=== PATIENT | male | born 1985 | race Caucasian/White ===

== ENCOUNTER 2018-10-03 13:09 | Emergency (ER) | payer BC ==
--- NOTE | 2018-10-03 13:41 | EDM.PDOC ---
ED HPI GENERAL MEDICAL PROBLEM - General Chief Complaint: General Stated Complaint: ORAL PAIN Time Seen by Provider: 10/03/18 13:35 - History of Present Illness INITIAL COMMENTS - FREE TEXT/NARRATIVE: HISTORY AND PHYSICAL: History of present illness: Patient 33-year-old male presents with a concern of dental abscess he has a scheduled appointment on Saturday he is here with concern of antibiotics and pain medication. No fever chills nausea vomiting or other complaints Review of systems: As per history of present illness and below otherwise all systems reviewed and negative. Past medical history: As per history of present illness and as reviewed below otherwise noncontributory. Surgical history: As per history of present illness and as reviewed below otherwise noncontributory. Social history: No reported history of drug or alcohol abuse. Family history: As per history of present illness and as reviewed below otherwise noncontributory. Physical exam: HEENT: Atraumatic, normocephalic, pupils reactive, negative for conjunctival pallor or scleral icterus, mucous membranes moist, throat clear, neck supple, nontender, trachea midline. Generally poor dentition patient has dental decay diffuse and left lower gingival edema. Lungs: Clear to auscultation, breath sounds equal bilaterally, chest nontender. Heart: S1S2, regular, negative for clicks, rubs, or JVD. Abdomen: Soft, nondistended, nontender. Negative for masses or hepatosplenomegaly. Negative for costovertebral tenderness. Pelvis: Stable nontender. Genitourinary: Deferred. Rectal: Deferred. Extremities: Atraumatic, negative for cords or calf pain. Neurovascular unremarkable. Neuro: Awake, alert, oriented. Cranial nerves II through XII unremarkable. Cerebellum unremarkable. Motor and sensory unremarkable throughout. Exam nonfocal. Diagnostics: None Therapeutics: None Impression: #1 dentalgia #2 dental abscess Definitive disposition and diagnosis as appropriate pending reevaluation and review of above. - Related Data Allergies Allergy/AdvReac Type Severity Reaction Status Date / Time Unable to Assess Allergy Unverified 03/12/14 07:57 ED ROS GENERAL - Review of Systems Review Of Systems: ROS reveals no pertinent complaints other than HPI. ED EXAM, GENERAL - Physical Exam Exam: See Below (See dictation) Departure - Departure Time of Disposition: 13:41 Disposition: Home, Self-Care 01 Condition: Good Clinical Impression: Dentalgia, Dental abscess - Discharge Information Referrals: PCP,None [Primary Care Provider] - Additional Instructions: The following information is given to patients seen in the emergency department who are being discharged to home. This information is to outline your options for follow-up care. We provide all patients seen in our emergency department with a follow-up referral. The need for follow-up, as well as the timing and circumstances, are variable depending upon the specifics of your emergency department visit. If you don't have a primary care physician on staff, we will provide you with a referral. We always advise you to contact your personal physician following an emergency department visit to inform them of the circumstance of the visit and for follow-up with them and/or the need for any referrals to a consulting specialist. The emergency department will also refer you to a specialist when appropriate. This referral assures that you have the opportunity for followup care with a specialist. All of these measure are taken in an effort to provide you with optimal care, which includes your followup. Under all circumstances we always encourage you to contact your private physician who remains a resource for coordinating your care. When calling for followup care, please make the office aware that this follow-up is from your recent emergency room visit. If for any reason you are refused follow-up, please contact the [facility] emergency department at and asked to speak to the emergency department charge nurse. Augmentin Ultram as prescribed keep dental appointment as scheduled and return as needed as discussed
== END 2018-10-03 13:56 | disposition home or self-care (01) ==
LOC: MW.ED 13:09
DX: K04.7 Periapical abscess without sinus (principal)
CPT/HCPCS: 99282; 99283

== ENCOUNTER 2019-10-23 14:52 | Emergency (ER) | payer BC, OTHER ==
--- NOTE | 2019-10-23 15:11 | EDM.PDOC ---
ED HPI GENERAL MEDICAL PROBLEM - General Chief Complaint: Back Pain or Injury Stated Complaint: FEVER AND BODY ACHES Time Seen by Provider: 10/23/19 15:10 Source of Information: Reports: Patient History Limitations: Reports: No Limitations - History of Present Illness INITIAL COMMENTS - FREE TEXT/NARRATIVE: HISTORY AND PHYSICAL: History of present illness: Patient is a 34-year-old male presents to the ED with complaint of fever and back pain and muscle aches. Patient states he woke up this morning with a subjective fever and chills. He states he is having some lower abdominal pain and thought it might be due to him doing some physical labor recently. He reports having swollen and tender lymph nodes in his neck and sore throat. He states he did have some nausea this morning that passed. He denies vomiting, diarrhea, abdominal pain, dysuria, hematuria, headache, cough, chest pain, shortness of breath, nasal congestion, sinus pressure, loss of taste or smell. Denies any recent travel or known sick contacts. Denies significant past medical history. Review of systems: As per history of present illness and below otherwise all systems reviewed and negative. Past medical history: As per history of present illness and as reviewed below otherwise noncontributory. Surgical history: As per history of present illness and as reviewed below otherwise noncontributory. Social history: No reported history of drug or alcohol abuse. Family history: As per history of present illness and as reviewed below otherwise noncontributory. Physical exam: General: Patient sitting comfortably in no acute distress and nontoxic appearing HEENT: Tonsils are 1+ and erythematous without exudate. Swollen and tender anterior cervical lymphadenopathy. TMs clear bilaterally. Atraumatic, normocephalic, pupils reactive, negative for conjunctival pallor or scleral icterus, mucous membranes moist, throat clear, neck supple, nontender, trachea midline. No meningeal signs. Lungs: Clear to auscultation, breath sounds equal bilaterally, chest nontender. Heart: S1S2, regular, negative for clicks, rubs, or overt murmur. Abdomen: Soft, nondistended, nontender. Negative for masses or hepatosplenomegaly. Negative for costovertebral tenderness. No rigidity, rebound , guarding. Pelvis: Stable nontender. Genitourinary: Deferred. Rectal: Deferred. Spine: No vertebral, paraspinal, or back tenderness to palpation. Extremities: Atraumatic, negative for cords or calf pain. Neurovascular unremarkable. Neuro: Awake, alert, oriented. Cranial nerves II through XII unremarkable. Cerebellum unremarkable. Motor and sensory unremarkable throughout. Exam nonfocal. Notes: Patient has slightly elevated WBC. He denies any abdominal pain, chest pain, cough, shortness of breath. Lungs are CTA and no signs of acute abdomen on exam. He is nontoxic appearing and well hydrated. Patient does have tender anterior cervical LAD and tonsils are erythematous. Patient given 1g Rocephin and discharged home with antibiotics and understands to return to the ED if any new or worsening symptoms. Diagnostics: UA, rapid strep, CBC, CMP, COVID19 Therapeutics: Tylenol 1g Rocephin IV Prescriptions: Keflex Impression: Acute pharyngitis Plan: Alternate tylenol and motrin as needed Take antibiotic as instructed Follow up with primary care provider Return to ED As needed as discussed Definitive disposition and diagnosis as appropriate pending reevaluation and review of above. lower back Pain Score (Numeric/FACES): 8 - Related Data Allergies Allergy/AdvReac Type Severity Reaction Status Date / Time No Known Allergies Allergy Verified 10/23/19 15:01 Home Meds: Home Meds cephALEXin [Keflex] 500 mg PO Q8H 10 Days #30 cap 10/23/19 [Rx] Past Medical History - Past Health History Medical/Surgical History: Denies Medical/Surgical History - Infectious Disease History Infectious Disease History: Reports: Chicken Pox Social & Family History - Family History Family Medical History: Noncontributory - Tobacco Use Smoking Status *Q: Never Smoker - Caffeine Use Caffeine Use: Reports: Soda - Recreational Drug Use Recreational Drug Use: No ED ROS GENERAL - Review of Systems Review Of Systems: Comprehensive ROS is negative, except as noted in HPI. ED EXAM,LOWER BACK PAIN/INJURY - Physical Exam Exam: See Below (see dictation) Course - Vital Signs Last Recorded V/S: Last Vital Signs Temp 99.3 F 10/23/19 17:30 Pulse 103 H 10/23/19 17:30 Resp 18 10/23/19 17:30 BP 121/67 10/23/19 17:30 Pulse Ox 97 10/23/19 17:30 - Orders/Labs/Meds Orders: Active Orders 24 hr Category Date Time Status CULTURE STREP A CONFIRMATION [RM] Stat Lab 10/23/19 15:20 Results STREP SCRN A RAPID W CULT CONF [RM] Stat Lab 10/23/19 15:20 Results Labs: Laboratory Tests 10/23/19 10/23/19 10/23/19 Range/Units 15:05 15:57 15:57 WBC 14.22 H (4.0-11.0) K/uL RBC 5.53 (4.50-5.90) M/uL Hgb 14.9 (13.0-17.0) g/dL Hct 45.5 (38.0-50.0) % MCV 82.3 (80.0-98.0) fL MCH 26.9 L (27.0-32.0) pg MCHC 32.7 (31.0-37.0) g/dL RDW Std Deviation 39.4 (28.0-62.0) fl RDW Coeff of Michelle 13 (11.0-15.0) % Plt Count 172 (150-400) K/uL MPV 10.40 (7.40-12.00) fL Neut % (Auto) 88.4 H (48.0-80.0) % Lymph % (Auto) 4.2 L (16.0-40.0) % [place] % (Auto) 7.2 (0.0-15.0) % Eos % (Auto) 0.1 (0.0-7.0) % Baso % (Auto) 0.1 (0.0-1.5) % Neut # (Auto) 12.6 H (1.4-5.7) K/uL Lymph # (Auto) 0.6 (0.6-2.4) K/uL [place] # (Auto) 1.0 H (0.0-0.8) K/uL Eos # (Auto) 0.0 (0.0-0.7) K/uL Baso # (Auto) 0.0 (0.0-0.1) K/uL Nucleated RBC % 0.0 /100WBC Nucleated RBCs # 0 K/uL Sodium 139 (136-148) mmol/L Potassium 3.9 (3.5-5.1) mmol/L Chloride 102 (98-107) mmol/L Carbon Dioxide 28.5 (21.0-32.0) mmol/L BUN 9 (7.0-18.0) mg/dL Creatinine 1.3 (0.8-1.3) mg/dL Est Cr Clr Drug Dosing 81.11 mL/min Estimated GFR (MDRD) > 60.0 ml/min Glucose 114 H (74-106) mg/dL Calcium 8.7 (8.5-10.1) mg/dL Total Bilirubin 0.8 (0.2-1.0) mg/dL AST 22 (15-37) IU/L ALT 36 (14-63) IU/L Alkaline Phosphatase 104 (46-116) U/L Total Protein 7.5 (6.4-8.2) g/dL Albumin 3.9 (3.4-5.0) g/dL Globulin 3.6 (2.6-4.0) g/dL Albumin/Globulin Ratio 1.1 (0.9-1.6) Urine Color YELLOW Urine Appearance CLEAR Urine pH 6.5 (5.0-8.0) Ur Specific [place] 1.025 (1.001-1.035) Urine Protein NEGATIVE (NEGATIVE) mg/dL Urine Glucose (UA) NEGATIVE (NEGATIVE) mg/dL Urine Ketones NEGATIVE (NEGATIVE) mg/dL Urine Occult Blood NEGATIVE (NEGATIVE) Urine Nitrite NEGATIVE (NEGATIVE) Urine Bilirubin NEGATIVE (NEGATIVE) Urine Urobilinogen 0.2 (<2.0) EU/dL Ur Leukocyte Esterase NEGATIVE (NEGATIVE) SARS-CoV-2 RNA (RT-PCR) (NEGATIVE) 10/23/19 Range/Units 16:40 WBC (4.0-11.0) K/uL RBC (4.50-5.90) M/uL Hgb (13.0-17.0) g/dL Hct (38.0-50.0) % MCV (80.0-98.0) fL MCH (27.0-32.0) pg MCHC (31.0-37.0) g/dL RDW Std Deviation (28.0-62.0) fl RDW Coeff of Michelle (11.0-15.0) % Plt Count (150-400) K/uL MPV (7.40-12.00) fL Neut % (Auto) (48.0-80.0) % Lymph % (Auto) (16.0-40.0) % [place] % (Auto) (0.0-15.0) % Eos % (Auto) (0.0-7.0) % Baso % (Auto) (0.0-1.5) % Neut # (Auto) (1.4-5.7) K/uL Lymph # (Auto) (0.6-2.4) K/uL [place] # (Auto) (0.0-0.8) K/uL Eos # (Auto) (0.0-0.7) K/uL Baso # (Auto) (0.0-0.1) K/uL Nucleated RBC % /100WBC Nucleated RBCs # K/uL Sodium (136-148) mmol/L Potassium (3.5-5.1) mmol/L Chloride (98-107) mmol/L Carbon Dioxide (21.0-32.0) mmol/L BUN (7.0-18.0) mg/dL Creatinine (0.8-1.3) mg/dL Est Cr Clr Drug Dosing mL/min Estimated GFR (MDRD) ml/min Glucose (74-106) mg/dL Calcium (8.5-10.1) mg/dL Total Bilirubin (0.2-1.0) mg/dL AST (15-37) IU/L ALT (14-63) IU/L Alkaline Phosphatase (46-116) U/L Total Protein (6.4-8.2) g/dL Albumin (3.4-5.0) g/dL Globulin (2.6-4.0) g/dL Albumin/Globulin Ratio (0.9-1.6) Urine Color Urine Appearance Urine pH (5.0-8.0) Ur Specific [place] (1.001-1.035) Urine Protein (NEGATIVE) mg/dL Urine Glucose (UA) (NEGATIVE) mg/dL Urine Ketones (NEGATIVE) mg/dL Urine Occult Blood (NEGATIVE) Urine Nitrite (NEGATIVE) Urine Bilirubin (NEGATIVE) Urine Urobilinogen (<2.0) EU/dL Ur Leukocyte Esterase (NEGATIVE) SARS-CoV-2 RNA (RT-PCR) NEGATIVE (NEGATIVE) Meds: Medications Discontinued Medications Generic Name Dose Route Start Last Admin Trade Name Freq PRN Reason Stop Dose Admin Acetaminophen 1,000 mg 10/23/19 15:17 10/23/19 15:21 Tylenol Extra Strength PO 10/23/19 15:18 1,000 mg ONETIME ONE Administration Sodium Chloride 1,000 mls @ 999 mls/hr 10/23/19 15:46 10/23/19 15:49 Normal Saline IV 10/23/19 16:46 999 mls/hr STAT ONE Administration Ceftriaxone Sodium/Dextrose 1 50 mls @ 100 mls/hr 10/23/19 16:51 10/23/19 17: 07 gm/ Premix IV 10/23/19 17:20 100 mls/hr ONETIME ONE Administration Departure - Departure Time of Disposition: 20:22 Disposition: Home, Self-Care 01 Condition: Good Clinical Impression: Acute pharyngitis, Fever - Discharge Information Prescriptions: cephALEXin [Keflex] 500 mg PO Q8H 10 Days #30 cap Instructions: Pharyngitis, [id number], Fever, Adult, [id number] Referrals: PCP,None [Primary Care Provider] - Forms: ED Department Discharge Additional Instructions: The following information is given to patients seen in the emergency department who are being discharged to home. This information is to outline your options for follow-up care. We provide all patients seen in our emergency department with a follow-up referral. The need for follow-up, as well as the timing and circumstances, are variable depending upon the specifics of your emergency department visit. If you don't have a primary care physician on staff, we will provide you with a referral. We always advise you to contact your personal physician following an emergency department visit to inform them of the circumstance of the visit and for follow-up with them and/or the need for any referrals to a consulting specialist. The emergency department will also refer you to a specialist when appropriate. This referral assures that you have the opportunity for follow-up care with a specialist. All of these measure are taken in an effort to provide you with optimal care, which includes your follow-up. Under all circumstances we always encourage you to contact your private physician who remains a resource for coordinating your care. When calling for follow-up care, please make the office aware that this follow-up is from your recent emergency room visit. If for any reason you are refused follow-up, please contact the [facility] Emergency Department at and asked to speak to the emergency department charge nurse. [facility] [address] [place] [address] [facility] [address] [place] [address] Alternate tylenol and motrin as needed Take antibiotic as instructed Follow up with primary care provider Return to ED As needed as discussed Sepsis Event Note - Evaluation Sepsis Screening Result: Possible Sepsis Risk - Focused Exam Vital Signs: Vital Signs Temp Temp Pulse Resp BP Pulse Ox 10/23/19 17:30 99.3 F 103 H 18 121/67 97 10/23/19 15:51 99.8 F 10/23/19 15:21 101.1 F H 10/23/19 15:01 101.1 F H 108 H 17 124/73 98 Date Exam was Performed: 10/23/19 Time Exam was Performed: 20:22 - My Orders Last 24 Hours: My Active Orders 10/23/19 15:20 CULTURE STREP A CONFIRMATION [RM] Stat STREP SCRN A RAPID W CULT CONF [RM] Stat - Assessment/Plan Last 24 Hours: My Active Orders 10/23/19 15:20 CULTURE STREP A CONFIRMATION [RM] Stat STREP SCRN A RAPID W CULT CONF [RM] Stat
[2019-10-23] MEDS ORDERED: Acetaminophen 500 MG Tab PO ONE (15:17)
[2019-10-23] MEDS ORDERED: Sodium Chloride 0.9% 1,000 ML IV ONE (15:46)
[2019-10-23 16:32] LABS: BLOOD UREA NITROGEN,BUN 9 mg/dL (7.0-18.0); CARBON DIOXIDE,CO2 28.5 mmol/L (21.0-32.0); CHLORIDE,CL 102 mmol/L (98-107); GLUCOSE RANDOM 114 mg/dL (74-106); POTASSIUM,K 3.9 mmol/L (3.5-5.1); SODIUM,NA 139 mmol/L (136-148)
[2019-10-23] MEDS ORDERED: cefTRIAXone 1 GM in Premix Bag 1 BAG IV ONE (16:51)
--- NOTE | 2019-10-23 17:25 | CR ---
Chest: Portable view of the chest was obtained. Comparison: Prior chest x-ray of 03/12/14. Heart size and mediastinum are within normal limits. Slight atelectasis within the left base is seen. Lungs otherwise are clear. Bony structures are grossly intact. Impression: 1. Mild right basilar atelectasis. 2. Nothing acute is otherwise seen on portable chest x-ray. Diagnostic code #2 This report was dictated in MDT
== END 2019-10-23 17:35 | disposition home or self-care (01) ==
LOC: MW.ED 14:52
DX: J02.9 Acute pharyngitis, unspecified (principal)
CPT/HCPCS: 71045; 80053; 81003; 85025; 87081; 87635; 87880; 96365; 99283; A9270; J0696; J7030; U0002

== ENCOUNTER 2019-10-28 02:10 | Emergency (ER) | payer BC, OTHER ==
[2019-10-28] MEDS ORDERED: Sodium Chloride 0.9% 10 ML Syringe FLUSH PRN (02:12)
[2019-10-28] MEDS ORDERED: Sodium Chloride 0.9% 2.5 ML Syringe FLUSH PRN (02:12)
[2019-10-28] MEDS ORDERED: Tenecteplase 50 MG Kit IV STA (02:24)
[2019-10-28] MEDS ORDERED: Heparin Sod,Pork In 0.45% Nacl 25,000 UNIT/500 ML IV.SOLN IV SCH (02:30)
[2019-10-28] MEDS ORDERED: Heparin Sod,Pork In 0.45% Nacl 25,000 UNIT/500 ML IV.SOLN IV ONE (02:30)
[2019-10-28] MEDS ORDERED: Aspirin 81 MG Tab.Chew ONE (02:33)
[2019-10-28] MEDS ORDERED: Nitroglycerin 0.4 MG Tab.SL ONE (02:33)
[2019-10-28] MEDS ORDERED: Nitroglycerin 0.4 MG Tab.SL SL STA (02:33)
[2019-10-28] MEDS ORDERED: Aspirin 81 MG Tab.Chew PO ONE (02:33)
[2019-10-28] MEDS: Heparin Sodium 5,000 Units/ML Vial ONE ×2 (02:44→04:46)
[2019-10-28] MEDS ORDERED: Enoxaparin 60 MG/0.6 ML Syringe SUBCUT ONE (02:49)
[2019-10-28 02:50] LABS: BLOOD UREA NITROGEN,BUN 11 mg/dL (7.0-18.0); CARBON DIOXIDE,CO2 29.4 mmol/L (21.0-32.0); CHLORIDE,CL 102 mmol/L (98-107); GLUCOSE RANDOM 117 mg/dL (74-106); POTASSIUM,K 3.3 mmol/L (3.5-5.1); SODIUM,NA 141 mmol/L (136-148)
--- NOTE | 2019-10-28 03:01 | EDM.PDOC ---
ED HPI GENERAL MEDICAL PROBLEM - General Chief Complaint: Chest Pain Stated Complaint: CHEST PAIN Time Seen by Provider: 10/28/19 02:12 - History of Present Illness INITIAL COMMENTS - FREE TEXT/NARRATIVE: -year-old male presents with chest pain and arm pain. Patient reports 2-hour history of first central chest pressure 6/10 in severity which made it difficult to sleep. This lasted roughly an hour and the pain in his chest seemed to dissipate and he began to have a squeezing sensation in his left bicep region was also radiated down the medial portion of his left forearm. He denies any nausea, vomiting, diaphoresis, jaw or neck pain. Patient denies any history of DVT or PE. No recent trips or travels. Patient does not have high blood pressure or diabetes. No family history of heart disease. Patient is not a smoker. On arrival patient reports left arm pain 6/10 in severity. However, almost immediately after arrival, all of his pain dissipated and he was pain-free. Chest Pain Score (Numeric/FACES): 7 - Related Data Allergies Allergy/AdvReac Type Severity Reaction Status Date / Time No Known Allergies Allergy Verified 10/28/19 02:19 Home Meds: Home Meds cephALEXin [Keflex] 500 mg PO Q8H 10 Days #30 cap 10/23/19 [Rx] Past Medical History - Past Health History Medical/Surgical History: Denies Medical/Surgical History HEENT History: Reports: None Cardiovascular History: Reports: None Respiratory History: Reports: None Gastrointestinal History: Reports: None Genitourinary History: Reports: None Musculoskeletal History: Reports: None Neurological History: Reports: None Psychiatric History: Reports: None Endocrine/Metabolic History: Reports: None Hematologic History: Reports: None Immunologic History: Reports: None Oncologic (Cancer) History: Reports: None Dermatologic History: Reports: None - Infectious Disease History Infectious Disease History: Reports: Chicken Pox - Past Surgical History Head Surgeries/Procedures: Reports: None Cardiovascular Surgical History: Reports: None Male Surgical History: Reports: None Social & Family History - Family History Family Medical History: Noncontributory - Tobacco Use Smoking Status *Q: Never Smoker - Caffeine Use Caffeine Use: Reports: Soda - Recreational Drug Use Recreational Drug Use: No ED ROS GENERAL - Review of Systems Review Of Systems: Comprehensive ROS is negative, except as noted in HPI. ED EXAM, GENERAL - Physical Exam Exam: See Below Free Text/Narrative:: General: Mild distress. Comfortable. Heent: Examination revealed no pallor, no icterus, no lymphadenopathy. The patient has normal posterior pharynx, moist mucous membranes. Neck: Supple. No JVD. No rigidity. Heart: Normal rate. Reg rhythm. No murmurs appreciated. Lungs: Bilaterally clear to auscultation. No focal findings. Abdomen: Nontender, non-distended, soft, no CVA tenderness. Neuro: Pt is moving all four extremities. EOMI. PERRL. Normal speech. Skin: Exposed areas appeared normally perfused, warm, normal color with no meaningful rashes or lesions. Extremities: Peripheral examination revealed no pedal edema. Peripheral pulses were 2+. EKG INTERPRETATION EKG Interpretation Comments: EKG time 2:12 AM. Rate is 69. ST elevation in lead II, III and aVF. Contour in lead II is concave. Contours in lead III and aVF are either flat or convex. ST depression in V2 V3 ST depression in V1 with reciprocal T wave inversion. Trace changes laterally. Is otherwise normal. QTc 396. EKG #2 was very similar to EKG #1. There is more consistent and flat ST depression in V1. Course - Vital Signs Text/Narrative:: Patient arrives with reasonable story and concerning EKG for inferior STEMI. No previous EKG available. STEMI alert called immediately, flight crew notified. Initially, TNKase was ordered for ongoing pain and likely STEMI. However the patient's pain resolved completely rather quickly without medication here. Accordingly, he was met with aspirin and heparin bolus and drip. Patient was accepted to the emergency department in my not. I discussed the case with cardiology. They request no TNKase and no Lovenox. They request ASA (given), heparin (given) and transfer directly to [facility]. No other medication requests. Pt remains pain-free here. Presentation not consistent with dissection there is no back pain and chest x-ray is not grossly abnormal. Trop returns around 20. Note that nitroglycerin was not given (inferior OR), Lovenox was not given, and TNKase was not given. These went in with the initial order sets but were not given. Patient leaves here nose distress, with no pain, no diaphoresis, aspirin having been given, heparin bolus given, and heparin drip running. Last Recorded V/S: Last Vital Signs Temp 97.0 F 10/28/19 02:15 Pulse 76 10/28/19 02:15 Resp 20 10/28/19 02:15 BP 130/96 H 10/28/19 02:15 Pulse Ox 97 10/28/19 02:15 - Orders/Labs/Meds Orders: Active Orders 24 hr Category Date Time Status Cardiac Monitoring [RC] . DIRECTED Care 10/28/19 02:32 Active EKG 12 Lead [EKG Documentation Completion] [RC] STAT Care 10/28/19 02:13 Active EKG Documentation Completion [RC] STAT Care 10/28/19 02:32 Active Chest 1V Frontal [CR] Stat Exams 10/28/19 02:32 Taken Heparin Sod,Pork In 0.45% Nacl [Heparin-1/2Ns 25,000 Med 10/28/19 02:30 Active Units/500] 25,000 unit in 500 ml IV TITRATE Sodium Chloride 0.9% [Saline Flush] Med 10/28/19 02:12 Active 10 ml FLUSH ASDIRECTED PRN Sodium Chloride 0.9% [Saline Flush] Med 10/28/19 02:12 Active 2.5 ml FLUSH ASDIRECTED PRN Saline Lock Insert [OM.PC] Stat Oth 10/28/19 02:12 Ordered Medication Orders Heparin Sodium/Sodium Chloride (Heparin-1/2ns 25,000 Units/500) 25,000 unit in 500 mls @ 20.684 mls/hr IV TITRATE JANICE; Protocol Sodium Chloride (Saline Flush) 10 ml FLUSH ASDIRECTED PRN PRN Reason: Keep Vein Open Sodium Chloride (Saline Flush) 2.5 ml FLUSH ASDIRECTED PRN PRN Reason: Keep Vein Open Labs: Laboratory Tests 10/28/19 10/28/19 10/28/19 Range/Units 02:20 02:20 02:20 WBC 8.10 (4.0-11.0) K/uL RBC 5.54 (4.50-5.90) M/uL Hgb 15.1 (13.0-17.0) g/dL Hct 45.5 (38.0-50.0) % MCV 82.1 (80.0-98.0) fL MCH 27.3 (27.0-32.0) pg MCHC 33.2 (31.0-37.0) g/dL RDW Std Deviation 37.6 (28.0-62.0) fl RDW Coeff of Michelle 13 (11.0-15.0) % Plt Count 248 (150-400) K/uL MPV 9.90 (7.40-12.00) fL Neut % (Auto) 56.7 (48.0-80.0) % Lymph % (Auto) 31.2 (16.0-40.0) % [place] % (Auto) 11.5 (0.0-15.0) % Eos % (Auto) 0.5 (0.0-7.0) % Baso % (Auto) 0.1 (0.0-1.5) % Neut # (Auto) 4.6 (1.4-5.7) K/uL Lymph # (Auto) 2.5 H (0.6-2.4) K/uL [place] # (Auto) 0.9 H (0.0-0.8) K/uL Eos # (Auto) 0.0 (0.0-0.7) K/uL Baso # (Auto) 0.0 (0.0-0.1) K/uL Nucleated RBC % 0.0 /100WBC Nucleated RBCs # 0 K/uL INR 1.05 APTT 25.9 (18.6-31.3) SEC Sodium 141 (136-148) mmol/L Potassium 3.3 L (3.5-5.1) mmol/L Chloride 102 (98-107) mmol/L Carbon Dioxide 29.4 (21.0-32.0) mmol/L BUN 11 (7.0-18.0) mg/dL Creatinine 1.3 (0.8-1.3) mg/dL Est Cr Clr Drug Dosing 69.44 mL/min Estimated GFR (MDRD) > 60.0 ml/min Glucose 117 H (74-106) mg/dL Calcium 8.7 (8.5-10.1) mg/dL Total Bilirubin 0.5 (0.2-1.0) mg/dL AST 90 H (15-37) IU/L ALT 38 (14-63) IU/L Alkaline Phosphatase 94 (46-116) U/L Troponin I 19.942 H* (0.000-0.056) ng/mL Total Protein 8.1 (6.4-8.2) g/dL Albumin 3.7 (3.4-5.0) g/dL Globulin 4.4 H (2.6-4.0) g/dL Albumin/Globulin Ratio 0.8 L (0.9-1.6) Meds: Medications Generic Name Dose Route Start Last Admin Trade Name Freq PRN Reason Stop Dose Admin Heparin Sodium/Sodium Chloride 25,000 unit in 500 mls @ 20.684 mls/hr 02:30 Heparin-1/2ns 25,000 Units/500 IV TITRATE JANICE Protocol 12 UNITS/KG/HR Sodium Chloride 10 ml 10/28/19 02:12 Saline Flush FLUSH ASDIRECTED PRN Keep Vein Open Sodium Chloride 2.5 ml 10/28/19 02:12 Saline Flush FLUSH ASDIRECTED PRN Keep Vein Open Discontinued Medications Generic Name Dose Route Start Last Admin Trade Name Freq PRN Reason Stop Dose Admin Aspirin 324 mg 10/28/19 02:33 10/28/19 02:36 Aspirin PO 10/28/19 02:34 324 mg ONETIME ONE Administration Aspirin Confirm 10/28/19 02:33 10/28/19 02:46 Aspirin Administered 10/28/19 02:34 Not Given Dose 324 mg .ROUTE .STK-MED ONE Enoxaparin Sodium 60 mg 10/28/19 02:49 Lovenox SUBCUT 10/28/19 02:50 ONETIME ONE Heparin Sodium (Porcine) Confirm 10/28/19 02:30 10/28/19 02:44 Heparin Sodium Administered 10/28/19 02:31 Not Given Dose 5,000 units .ROUTE .STK-MED ONE Heparin Sodium/Sodium Chloride Confirm 10/28/19 02:30 Heparin-1/2ns 25,000 Units/500 Administered 10/28/19 02:31 Dose 25,000 unit in 500 mls @ as directed IV .STK-MED ONE Nitroglycerin 0.4 mg 10/28/19 02:33 Nitrostat SL 10/28/19 02:34 Q5M STA Nitroglycerin Confirm 10/28/19 02:33 10/28/19 02:46 Nitrostat Administered 10/28/19 02:34 Not Given Dose 1.2 mg .ROUTE .STK-MED ONE Tenecteplase 50 mg 10/28/19 02:24 Tnkase IV 10/28/19 02:25 NOW STA Protocol Departure - Departure Time of Disposition: 02:40 Disposition: DC/Tfer to Other 70 Condition: Fair, Poor, Serious Clinical Impression: Acute coronary syndrome - Discharge Information Referrals: PCP,None [Primary Care Provider] - Forms: ED Department Discharge Critical Care Note - Critical Care Note Total Time (mins): 35 Comments: 35 minutes of critical care time was recorded for discussion with the patient about treatment options and history, discussion with the emergency room accepting doctor, discussion with cardiology, another discussion with cardiology , chart review, medical decision making. This time did not include any time with procedures. Sepsis Event Note - Evaluation Sepsis Screening Result: No Definite Risk - Focused Exam Vital Signs: Vital Signs Temp Pulse Resp BP Pulse Ox 10/28/19 02:15 97.0 F 76 20 130/96 H 97 Date Exam was Performed: 10/28/19 Time Exam was Performed: 03:30 - My Orders Last 24 Hours: My Active Orders 10/28/19 02:12 Sodium Chloride 0.9% [Saline Flush] 10 ml FLUSH ASDIRECTED PRN Sodium Chloride 0.9% [Saline Flush] 2.5 ml FLUSH ASDIRECTED PRN Saline Lock Insert [OM.PC] Stat 10/28/19 02:13 EKG 12 Lead [EKG Documentation Completion] [RC] STAT 10/28/19 02:30 Heparin Sod,Pork In 0.45% Nacl [Heparin-1/2Ns 25,000 Units/500] 25,000 unit in 500 ml IV TITRATE 10/28/19 02:32 Cardiac Monitoring [RC] . DIRECTED EKG Documentation Completion [RC] STAT Chest 1V Frontal [CR] Stat - Assessment/Plan Last 24 Hours: My Active Orders 10/28/19 02:12 Sodium Chloride 0.9% [Saline Flush] 10 ml FLUSH ASDIRECTED PRN Sodium Chloride 0.9% [Saline Flush] 2.5 ml FLUSH ASDIRECTED PRN Saline Lock Insert [OM.PC] Stat 10/28/19 02:13 EKG 12 Lead [EKG Documentation Completion] [RC] STAT 10/28/19 02:30 Heparin Sod,Pork In 0.45% Nacl [Heparin-1/2Ns 25,000 Units/500] 25,000 unit in 500 ml IV TITRATE 10/28/19 02:32 Cardiac Monitoring [RC] . DIRECTED EKG Documentation Completion [RC] STAT Chest 1V Frontal [CR] Stat
--- NOTE | 2019-10-28 03:44 | CR ---
Indication: Chest pain Technique: Chest 1 view Comparison: 10/23/2019 Findings/Impression: Cardiovascular and mediastinum: Heart size and vasculature are normal in caliber and appearance. Mediastinum is within normal limits. Lungs and pleural space: Lungs are clear. No sign of infiltrate or mass. No sign of pleural effusion. No pneumothorax. Bones and soft tissues: No significant findings. Dictated by Ori Peralta MD @ 10/28/2019 3:43:51 AM Dictated by: Ori Peralta MD @ 10/28/2019 03:43:58 (Electronically Signed)
== END 2019-10-28 03:27 | disposition other institution (70) ==
LOC: MW.ED 02:10
DX: I24.9 Acute ischemic heart disease, unspecified (principal)
CPT/HCPCS: 36415; 71045; 80053; 84484; 85025; 85610; 85730; 93005; 99285; A9270; J1644; 99291

== ENCOUNTER 2021-08-29 00:47 | Emergency (ER) | payer BC ==
[2021-08-29] MEDS ORDERED: Sodium Chloride 0.9% 2.5 ML Syringe FLUSH PRN (01:20)
[2021-08-29] MEDS ORDERED: Sodium Chloride 0.9% 10 ML Syringe FLUSH PRN (01:20)
[2021-08-29 01:46] LABS: BLOOD UREA NITROGEN,BUN 13 mg/dL (7.0-18.0); CARBON DIOXIDE,CO2 26.3 mmol/L (21.0-32.0); CHLORIDE,CL 105 mmol/L (98-107); ESTIMATED GFR > 60.0 ml/min; GLUCOSE RANDOM 110 mg/dL (74-106); POTASSIUM,K 3.5 mmol/L (3.5-5.1); SODIUM,NA 142 mmol/L (136-148)
== END 2021-08-29 03:52 | disposition home or self-care (01) ==
LOC: MW.ED 00:47
DX: M79.602 Pain in left arm (principal); R20.2 Paresthesia of skin
CPT/HCPCS: 36415; 71045; 71045-26; 80053; 84484; 85025; 93005; 93010; 99283; 99285-25; J3490

== ENCOUNTER 2021-12-25 15:13 | Emergency (ER) | payer BC ==
[2021-12-25 16:40] LABS: BLOOD UREA NITROGEN,BUN 15 mg/dL (7.0-18.0); CARBON DIOXIDE,CO2 26.4 mmol/L (21.0-32.0); CHLORIDE,CL 105 mmol/L (98-107); GLUCOSE RANDOM 102 mg/dL (74-106); POTASSIUM,K 4.1 mmol/L (3.5-5.1); SODIUM,NA 141 mmol/L (136-148)
[2021-12-25 16:43] LABS: ESTIMATED GFR 88 mL/min (>60)
== END 2021-12-25 17:28 | disposition home or self-care (01) ==
LOC: MW.ED 15:13
DX: R07.89 Other chest pain (principal)
CPT/HCPCS: 36415; 71045; 71045-26; 80053; 84484; 85025; 93005; 93010; 99285

== ENCOUNTER 2022-09-10 08:26 | Emergency (ER) | payer BC ==
[2022-09-10 09:45] LABS: CARBON DIOXIDE,CO2 26.6 mmol/L (21.0-32.0); POTASSIUM,K 3.4 mmol/L (3.5-5.1)
== END 2022-09-10 11:28 | disposition home or self-care (01) ==
LOC: MW.ED 08:26
DX: R06.00 Dyspnea, unspecified (principal); I25.2 Old myocardial infarction
CPT/HCPCS: 36415; 71045; 71045-26; 80048; 84484; 85025; 85379; 93005; 93010; 99283; 99285

== ENCOUNTER 2024-01-03 23:28 | Emergency (ER) | payer BC ==
[2024-01-03] MEDS ORDERED: Sodium Chloride 0.9% 10 ML Syringe FLUSH PRN (23:59)
[2024-01-03] MEDS ORDERED: Sodium Chloride 0.9% 2.5 ML Syringe FLUSH PRN (23:59)
[2024-01-04 00:11] LABS: BASOPHILS ABSOLUTE AUTO 0.04 K/uL (0.00-0.20); BASOPHILS PERCENT AUTO 0.4 % (0.0-1.0); EOSINOPHILS PERCENT AUTO 0.9 % (0.0-6.0); HEMATOCRIT 43.7 % (42.0-52.0); HEMOGLOBIN 14.8 g/dL (14.0-18.0); IMMATURE GRAN ABSOLUTE AUTO 0.03 K/uL (0.00-0.05); IMMATURE GRAN PERCENT AUTO 0.3 % (0.0-0.4); LYMPHOCYTES ABSOLUTE AUTO 2.03 K/uL (1.00-4.80); LYMPHOCYTES PERCENT AUTO 18.4 % (24.0-44.0); MEAN CORPUSCULAR HEMOGLOBIN 27.2 pg (28.0-32.0); MEAN CORPUSCULAR HGB CONC 33.9 g/dL (32.0-36.0); MEAN CORPUSCULAR VOLUME 80.3 fL (83.0-99.0); MEAN PLATELET VOLUME 10.1 fL (9.4-12.4); MONOCYTES ABSOLUTE AUTO 1.07 K/uL (0.00-0.80); MONOCYTES PERCENT AUTO 9.7 % (0.0-8.0); NEUTROPHILS ABSOLUTE AUTO 7.79 K/uL (1.80-7.70); NEUTROPHILS PERCENT AUTO 70.3 % (41.0-71.0); PLATELET COUNT,PLT 225 K/uL (150-400); RED BLOOD CELL COUNT 5.44 M/uL (4.52-5.90); WHITE BLOOD CELL COUNT,WBC 11.06 K/uL (3.9-11.3)
[2024-01-04 00:26] LABS: A/G RATIO 0.9 (0.9-1.6); ALBUMIN 3.8 g/dL (3.4-5.0); CALCIUM 8.9 mg/dL (8.5-10.1); CARBON DIOXIDE,CO2 27.8 mmol/L (21.0-32.0); CREATININE 1.3 mg/dL (0.8-1.3); EST CRCL DRUG DOSING (CG) 80.45 mL/min; POTASSIUM,K 3.6 mmol/L (3.5-5.1); PROTEIN TOTAL,TP 7.8 g/dL (6.4-8.2)
== END 2024-01-04 02:23 | disposition home or self-care (01) ==
LOC: MW.ED 23:28
DX: R10.10 Upper abdominal pain, unspecified (principal); Z75.8 Other problems related to medical facilities and other health care
CPT/HCPCS: 36415; 74176; 74176-26; 80053; 83690; 84484; 85025; 93005; 99284